=== PATIENT | female | born 1940 | race Caucasian/White ===

== ENCOUNTER 2017-12-12 11:23 | Outpatient (CLI) | payer MEDICARE, OTHER | END 2017-12-12 11:24 | disposition home or self-care (01) | LOC: BICMAMMO 11:23 | PROVIDERS: ATTEND Obstetrics & Gynecology Gynecology | DX: Z12.31 Encounter for screening mammogram for malignant neoplasm of breast (principal) | CPT/HCPCS: 77063; 77067 ==

== ENCOUNTER 2018-01-30 08:07 | Outpatient (CLI) | payer MEDICARE, OTHER ==
--- NOTE | 2018-01-30 10:32 | ULT ---
ULTRASOUND ABDOMEN COMPLETE: DATE: 01/30/2018. HISTORY: Epigastric pain and chronic renal disease in a 77-year-old female. FINDINGS: Liver: Normal echogenicity and size. Gallbladder: Surgically absent. Common duct: 4 mm. Spleen: No splenomegaly. Pancreas: Partially obscured by shadowing from bowel gas. Kidneys: No hydronephrosis. A 1.5 x 1 cm cortical exophytic cyst at left renal mid pole. A 1.5 x 1. 5 cm exophytic cortical cyst at right renal upper pole. Abdominal aorta: No aneurysm. Inferior vena cava: Visualized portions near liver unremarkable. IMPRESSION: 1. Status post cholecystectomy. 2. A few small renal cysts. 3. Otherwise, negative. BASSEM Bullock POS: DOUGLAS
== END 2018-01-30 08:08 | disposition home or self-care (01) ==
LOC: SCSULT 08:07
PROVIDERS: ATTEND Internal Medicine Gastroenterology
DX: Z12.11 Encounter for screening for malignant neoplasm of colon (principal); R10.9 Unspecified abdominal pain; R19.7 Diarrhea, unspecified; R10.13 Epigastric pain; R63.4 Abnormal weight loss; R11.2 Nausea with vomiting, unspecified; N28.1 Cyst of kidney, acquired; Z90.49 Acquired absence of other specified parts of digestive tract
CPT/HCPCS: 76700

== ENCOUNTER 2018-10-11 19:55 | Emergency (ER) | payer MEDICARE, OTHER | END 2018-10-11 21:15 | disposition home or self-care (01) | LOC: SCSER 19:55 | DX: H53.451 Other localized visual field defect, right eye (principal); I12.9 Hypertensive chronic kidney disease with stage 1 through stage 4 chronic kidney disease, or unspecified chronic kidney disease; E11.22 Type 2 diabetes mellitus with diabetic chronic kidney disease; N18.9 Chronic kidney disease, unspecified; Z79.82 Long term (current) use of aspirin; Z79.899 Other long term (current) drug therapy | CPT/HCPCS: 99283 ==

== ENCOUNTER 2019-11-19 12:09 | Outpatient (CLI) | payer MEDICARE, OTHER ==
--- NOTE | 2019-11-20 13:38 | MMO ---
Bilateral MAMMO Bilat Screen [facility]. CLINICAL HISTORY: Patient is 79 years old and is seen for screening. The patient has no family history of breast cancer. The patient has no personal history of cancer. VIEWS: The views performed were: bilateral craniocaudal with tomosynthesis and bilateral mediolateral oblique with tomosynthesis. FILMS COMPARED: The present examination has been compared to prior imaging studies performed at [facility] on 11/30/2014, 12/03/2015, 12/11/2016 and 12/12/2017. This study has been interpreted with the assistance of computer-aided detection. MAMMOGRAM FINDINGS: There are scattered fibroglandular densities. There are no suspicious masses, suspicious calcifications, or new areas of architectural distortion. IMPRESSION: THERE IS NO MAMMOGRAPHIC EVIDENCE OF MALIGNANCY. A ROUTINE FOLLOW-UP MAMMOGRAM IN 1 YEAR IS RECOMMENDED. THE RESULTS OF THIS EXAM WERE SENT TO THE PATIENT. ACR BI-RADS Category 1 - Negative MAMMOGRAPHY NOTE: 1. A negative mammogram report should not delay a biopsy if a dominant of clinically suspicious mass is present. 2. Approximately 10% to 15% of breast cancers are not detected by mammography. 3. Adenosis and dense breasts may obscure an underlying neoplasm. Reported by: GIL RICH MD Electonically Signed: [id number]
== END 2019-11-19 12:10 | disposition home or self-care (01) ==
LOC: BICMAMMO 12:09
PROVIDERS: ATTEND Family Medicine
DX: Z12.31 Encounter for screening mammogram for malignant neoplasm of breast (principal)
CPT/HCPCS: 77063; 77067